=== PATIENT | female | born 1955 | race Caucasian/White ===

== ENCOUNTER 2021-01-30 14:12 | Inpatient (IN) ==
[2021-01-30 15:01] LABS: ABS Basophils 0.1 10^3/ul (0-0.2); ABS Eosinophils 0.1 10^3/ul (0-0.6); ABS Lymphocytes 1.1 10^3/ul (1.0-4.8); ABS Monocytes 0.7 10^3/ul (0-0.8); ABS Neutrophils 3.6 10^3/ul (1.5-7.7); Eosinophil % 1.3 %; Hematocrit 16 % (35-47); Hemoglobin 4.5 g/dL (12.0-16.0); Lymphocyte % 20.1 %; Mean Corpuscular HGB Conc 28 g/dL (31-36); Mean Corpuscular Hemoglobin 17 pg (27-31); Mean Corpuscular Volume 62 fL (80-97); Mean Platelet Volume 8.8 fL (7.4-10.4); Nucleated Red Blood Cells % 0.7; Platelet Count 243 10^3/uL (150-450); Red Blood Count 2.63 10^6 /uL (3.70-4.87); Red Cell Distribution Width 21 % (10-15); White Blood Count 5.6 10^3/uL (3.5-10.8)
[2021-01-30 15:02] LABS: Albumin 3.3 g/dL (3.2-5.2); Calcium 8.1 mg/dL (8.6-10.3); Magnesium 1.9 mg/dL (1.9-2.7); Potassium 3.4 mmol/L (3.5-5.0); Total Bilirubin 0.3 mg/dL (0.2-1.0)
[2021-01-30 15:08] LABS: Globulin 3.2 g/dL (2-4); Total Protein 6.5 g/dL (6.4-8.9); eGFR CKD-EPI 71.9 (>60)
[2021-01-30 15:09] LABS: Troponin I 0.01 ng/mL (<0.03)
[2021-01-30] MEDS ORDERED: NS 0.9% 1000 ml BAG 1,000 ML IV ONE (15:33)
[2021-01-30 15:38] LABS: Anisocytosis 2+; Hypochromasia 3+; Microcytosis 3+; Polychromasia 1+
[2021-01-30 15:48] LABS: TSH Ultra Thyroid Stim Horm 0.72 mcIU/mL (0.34-5.60)
[2021-01-30] MEDS ORDERED: Pantoprazole 80 mg in NS BAG 80 MG/250 ML BAG IV ONE (15:51)
[2021-01-30] MEDS ORDERED: Pantoprazole VIAL 40 MG VIAL IV ONE (15:51)
[2021-01-30] MEDS ORDERED: NS 0.9% 1000 ml BAG 1,000 ML IV SCH (16:45)
[2021-01-30] MEDS: Pantoprazole 80 mg in NS BAG 80 MG/250 ML BAG IV SCH (16:55)
[2021-01-30] MEDS ORDERED: Ondansetron 4 mg VIAL 2 MG/ML 2 ml VIAL IV PRN (17:18)
[2021-01-30] MEDS ORDERED: PEG 3000 GI LAVAGE 1 GALLON PO ONE (17:39)
[2021-01-30 20:41] LABS: Hematocrit 17 % (35-47); Hemoglobin 5.1 g/dL (12.0-16.0)
[2021-01-30 20:55] LABS: Rapid COVID-19 Molecular Undetected (Undetected)
[2021-01-31 01:12] LABS: Hematocrit 23 % (35-47); Hemoglobin 6.8 g/dL (12.0-16.0)
[2021-01-31] MEDS: Pantoprazole 80 mg in NS BAG 80 MG/250 ML BAG IV SCH ×2 (02:43→16:30)
[2021-01-31 07:10] LABS: Hematocrit 25 % (35-47); Hemoglobin 7.7 g/dL (12.0-16.0)
[2021-01-31 07:22] LABS: Calcium 8.1 mg/dL (8.6-10.3); Potassium 3.9 mmol/L (3.5-5.0); eGFR CKD-EPI 96.3 (>60)
[2021-01-31] MEDS ORDERED: Midazolam 10 mg/10 ml VIAL 1 mg/ml 10 ml VIAL (10 mg) ONE (14:51)
[2021-01-31] MEDS ORDERED: fentaNYL 100 mcg/2 ml 50 MCG/ML VIAL ONE (14:51)
[2021-02-01 06:20] LABS: ABS Basophils 0.1 10^3/ul (0-0.2); ABS Eosinophils 0.2 10^3/ul (0-0.6); ABS Lymphocytes 1.1 10^3/ul (1.0-4.8); ABS Monocytes 0.4 10^3/ul (0-0.8); Eosinophil % 3.4 %; Hematocrit 24 % (35-47); Hemoglobin 7.4 g/dL (12.0-16.0); Mean Corpuscular HGB Conc 31 g/dL (31-36); Mean Corpuscular Hemoglobin 22 pg (27-31); Mean Corpuscular Volume 71 fL (80-97); Mean Platelet Volume 8.6 fL (7.4-10.4); Nucleated Red Blood Cells % 0.1; Platelet Count 153 10^3/uL (150-450); Red Blood Count 3.39 10^6 /uL (3.70-4.87); Red Cell Distribution Width 28 % (10-15); White Blood Count 4.8 10^3/uL (3.5-10.8)
[2021-02-01] MEDS ORDERED: Iron Sucrose 200 MG in NS 0.9% 100 ml BAG 100 ML IVPB ONE (12:00)
[2021-02-01 12:09] VITALS: BP 139/55
[2021-02-01 13:20] LABS: Hematocrit 26 % (35-47); Hemoglobin 7.9 g/dL (12.0-16.0)
[2021-02-03 17:05] LABS: % Iron Saturation 5 % (14 - 50); Iron 33 mcg/dL (35 - 145); Total Iron Binding Capacity 703 mcg/dL (250 - 400); Transferrin 596 mg/dL (200 - 360)
== END 2021-02-01 15:32 | disposition home or self-care (01) | DRG 379 ==
LOC: EDHOLD 14:12 → ED 14:12 → SUATTDRO 17:18 → MEDTELE 19:53
PROVIDERS: ADMIT Internal Medicine; ATTEND Internal Medicine